=== PATIENT | female | born 1965 | race Caucasian/White ===

== ENCOUNTER 2025-02-27 10:36 | Outpatient (OUT) | payer BC, SELFPAY ==
--- OUTSIDE RECORDS SUMMARY | 2025-02-27 10:47 | XMS_ITS | Encounter Summary ---
Author Organization [facility] Address [address] [facility] [place] [address] Care Team Providers Care Stock Preparation Operator Name Role Phone Cyndie Negro MD Primary Care Provider [phone] Encounter Details Date Type Department Care Team (Late Contact Info) Description 12/26/2024 Abstract [facility] GUZMAN [address] [address] Víctor Lindsey DO [address] [facility] [address] [address] [place] [id number] Social History Tobacco Use Types Packs/Day Years Used Date Smoking Tobacco: Never Smokeless Tobacco: Never Alcohol Use Standard Drinks/Week Comments Yes 0 (1 standard drink = 0.6 oz pur e alcohol) Comments No Sex and Gender Information Value Date Recorded Sex Assigned at Not on file Legal Sex Female 7:34 PM EDT Gender Identity Not on file Sexual Orientation Not on file documented as of this encounter Plan of Treatment Upcoming Encounters Date Type Department Care Team (Late Contact Info) Description 05/24/2025 8:30 AM EST Office Visit [facility] GUZMAN [address] [place] [facility] [address] [address] Giana Muniz DO [address] [address] documented as of this encounter Visit Diagnoses Not on filedocumented in this encounter Care Teams Stock Preparation Operator Relationship Specialty Start Date End Date Cyndie Negro MD PCP - General Family Medicine 08/05/23 documented as of this encounter
--- OUTSIDE RECORDS SUMMARY | 2025-02-27 10:47 | XMS_ITS | Encounter Summary ---
Author Organization [facility] Address [address] [facility] [place] [address] Care Team Providers Care Tin Flopper Name Role Phone Cyndie Negro MD Primary Care Provider [phone] Encounter Details Date Type Department Care Team (Late Contact Info) Description 02/27/2025 Orders Only NOMAdrian KANGLisset [address] [facility] [address] [place] [phone] Víctor Lindsey DO [address] [facility] [address] [place] Com[place], [facility] Localized swelling of left foot Social History Tobacco Use Types Packs/Day Years [...] on file documented as of this encounter Progress Notes * Renuka Ward LPN - 02/27/2025 9:22 AM EDT Swollen left foot. Order needed for x-ray of left foot. documented in this encounter Plan of Treatment Upcoming Encounters Date Type Department Care Team (Late st Contact Info) Description 05/24/2025 8:30 AM EST Office Visit [facility]osi GUZMAN [address] [facility] 2 [place] [phone] Giana Muniz DO [address] [address] Scheduled Orders Name Type Priority Associated Diagnoses Orde r Schedule XR foot 3+ views left Imaging Routine Localized swelling of left foot Expected: 02/27/2025, Expires: 02/27/2026 documented as of this encounter Visit Diagnoses Diagnosis Localized swelling of left foot documented in this encounter Care Teams Tin Flopper Relationship Specialty Start Date End Date Cyndie Negro MD PCP - General Family Medicine 08/05/23 documented as of this encounter
--- OUTSIDE RECORDS SUMMARY | 2025-02-27 10:47 | XMS_ITS | Clinical Summary ---
Author Organization [facility] Address [address] [place] [address] Care Team Providers Care Resident Services Manager Name Role Phone Cyndie Negro MD Primary Care Provider [phone] Allergies Active Allergy Reactions Criticality Noted Date Comments Lisinopril Rash Low 08/05/2023 Penicillins 08/05/2023 Medications metoprolol succinate XL (Toprol-XL) 100 MG 24 hr tablet Take 100 mg by mouth in the morning. 3 Active magnesium 100 MG tablet Take by mouth Active azithromycin (Zithromax Z-Uvaldo) 250 MG tabletIndication s:Sinusitis, unspecified chronicity, unspecified location As directed 6 tablet 4 Active cloNIDine (Catapres) 0.1 MG tablet Take 0.1 mg by mouth in the morning and 0.1 mg before bedtime. Active azithromycin (Zithromax Z-Uvaldo) 250 MG tabletIndication s:Acute sinusitis, recurrence not specified, unspecified location As directed 6 tablet 5 Active azithromycin (Zithromax Z-Uvaldo) 250 MG tabletIndication s:Acute sinusitis, recurrence not specified, unspecified location As directed 6 tablet 5 Active methylPREDNISolo ne (Medrol Dospak) 4 MG tabletsIndicatio ns:Acute sinusitis, recurrence not specified, unspecified location Day 1: 6 tablets Day 2: 5 tablets Day 3: 4 tablets Day 4: 3 tablets Day 5: 2 tablets Day 6: 1 tablet 21 tablet 5 Active azithromycin (Zithromax Z-Uvaldo) 250 MG tabletIndication s:Sinusitis, unspecified chronicity, unspecified location As directed 6 tablet 5 Active fluticasone (Flonase) 50 MCG/ACT nasal sprayIndications :Sinusitis, unspecified chronicity, unspecified location,Acute sinusitis, recurrence not specified, unspecified location Administer 1 spray into each nostril Daily Shake gently. Before first use, prime pump. After use, clean tip and replace cap. 16 g 6 Active albuterol HFA (Ventolin HFA) 90 mcg/act inhalerIndicatio ns:Sinusitis, unspecified chronicity, unspecified location,Acute sinusitis, recurrence not specified, unspecified location Inhale 2 puffs every 4 (four) hours if needed for wheezing 18 g 6 5 Active Encounters Date Type Department Care Team Description 02/27/2025 Orders Only [facility] [address] Víctor Lindsey, Localized swelling of left foot 12/26/2024 [place] [address] Víctor Lindsey DO 12/01/2024 [place] [address] Renuka Ward LPN from Last 3 Months Family History Medical History Relation Name Comments Hypertension Mother Relation Name Status Comments Father Mother Alive Social History Tobacco Use Types Packs/Day Years Used Date Smoking Tobacco: Never Smokeless Tobacco: Never Tobacco Cessation:Counseling Given: Not Answered Alcohol Use Standard Drinks/Week Comments Yes 0 (1 standard drink = 0.6 oz pur e alcohol) Comments No Sex and Gender Information Value Date Recorded Sex Assigned at Not on file Legal Sex Female 7:34 PM EDT Gender Identity Not on file Sexual Orientation Not on file Last Filed Vital Signs Vital Sign Reading Time Taken Comments Blood Pressure 132/80 05/18/2024 9:43 AM EST Pulse - - Temperature - - Respiratory Rate - - Oxygen Saturation - - Inhaled Oxygen Concentration - - Weight 92.5 kg (204 lb) 05/18/2024 9:43 AM EST Height - - Body Mass Index - - Plan of Treatment Upcoming Encounters Date Type Department Care Team (Late st Contact Info) Description 05/24/2025 8:30 AM EST Office Visit [facility] [address] [place] [facility] 2 [place] [address] Giana Muniz DO [address] [phone] Health Maintenance Due Date Last Done Comments CT Colonography 1965 Colonoscopy 1965 Colorectal Cancer Screening 1965 FIT-DNA 1965 FIT 1965 FOBT 1965 Sigmoidoscopy 1965 HPV/Cotest 1995 Mammogram 2005 Influenza Vaccine (#1) 2025 Cervical Cancer Screening 05/18/2027 Pap Smear 05/18/2027 05/18/2024 Procedures Procedure Name Priority Date/Time Associated Diagnosis Comments THINPREP TIS PAP AND HPV MRNA E6/E7 WITH REFLEX TO HPV 16,18/45 Routine 05/18/2024 12:00 AM EST Screening for malignant neoplasm of cervix Encounter for screening for human papillomavirus (HPV) from Last 3 Months or Most Recently Relevant to Health Maintenance Results * THINPREP TIS PAP AND HPV MRNA E6/E7 WITH REFLEX TO HPV 16,18/45 (05/18/2024 12:00 AM EST) CLINICAL INFORMATION [facility] Comment:None given LMP [facility] Comment:None given PREV. PAP [facility] Comment:None given PREV. BX [facility] Comment:None given SOURCE [facility] Comment:None given STATEMENT OF ADEQUACY [facility] Comment: Satisfactory for evaluation. Endocervical/transformation zone component absent. INTERPRETATION/RESU LT [facility] Comment: Cytology Results: Negative for intraepithelial lesion or malignancy. COMMENT [facility] Comment: This Pap test has been evaluated with computer assisted technology. ANALYTICAL DATA SCIENTIST [facility] Comment: PEH, CT(ASCP) CT screening location: [facility] [place], [address] [place] [address], [place] [address]. (ALWAYS MESSAGE) [facility] Comment: EXPLANATORY NOTE: The Pap is a screening test for cervical cancer. It is not a diagnostic test and is subject to false negative and false positive results. It is most reliable when a satisfactory sample, regularly obtained, is submitted with relevant clinical findings and history, and when the Pap result is evaluated along with historic and current clinical information. HPV MRNA E6/E7 Not Detected Not Detected [facility] Comment: Methodology: Slicing Machine Feeder-Mediated Amplification This assay detects E6/E7 viral messenger RNA (mRNA) from 14 high-risk HPV types (16,18,31,33,35,39,45,51,52,56,58,59,66,68). Cervical sources are required for HPV testing. If a vaginal source from a patient who has had a total hysterectomy with removal of cervix was submitted, please contact the testing laboratory for alternative testing options. For additional information, please refer to http://education.Photobucket/faq/MIM442p1 (This link if provided for information/ educational purposes only.) Swab (specimen) 05/18/2024 4 1:46 AM EST Narrative Resulting Agency Comment Performing Organization Information Site ID: [id number] Name: [facility] Address: [address] [place] [phone] Director: Celso Coyne MD Giana Muniz DO LAB CYTOLOGY ORDERABLES Fi nal Result [facility] from Last 3 Months or Most Recently Relevant to Health Maintenance Insurance [employer] Care Teams Resident Services Manager Relationship Specialty Start Date End Date Cyndie Negro MD PCP - General Family Medicine 08/05/23
--- OUTSIDE RECORDS SUMMARY | 2025-02-27 10:47 | XMS_ITS | Encounter Summary ---
Author Organization [facility] Address [address] [place] [address] Care Team Providers Care Stucco Laborer Name Role Phone Cyndie Negro MD Primary Care Provider [phone] Encounter Details Date Type Department Care Team (Late Contact Info) Description 08/13/2023 Abstract [facility]rian Miranda MEGAN [address] [facility] [address] [place] [phone] Giana Muniz DO [address] [address] Social History Tobacco Use Types Packs/Day Years [...] Description 05/24/2025 8:30 AM EST Office Visit CARON GUZMAN [address] [place] [facility] [address] [place] [address] Giana Muniz DO [address] [address] documented as of this encounter Visit Diagnoses Not on filedocumented in this encounter Care Teams Stucco Laborer Relationship Specialty Start Date End Date Cyndie Negro MD PCP - General Family Medicine 08/05/23 documented as of this encounter
--- NOTE | 2025-02-27 10:53 | XR_ITS ---
The [place] [id number] Patient Name: EDILBERTO ANDERSON MRN: [id number] date: 1965 Sex: F Assigned Patient Location: [facility] Current Patient Location: [facility] Accession/Order Number: [id number] Exam Date: 02/27/2025 12:34 Report Date: 02/27/2025 12:36 At the request of: EDMUND REYES DO Procedure: XR foot LT min 3V 3 views left foot plain film COMPARISON:None HISTORY: Left second and third digit pain secondary to injury ACUTE FINDINGS: The dislocation at the second metatarsophalangeal joint. No acute displaced fracture DEGENERATIVE CHANGE: Unremarkable SOFT TISSUE FINDINGS: Benign calcification JOINT EFFUSION: None POSTOP CHANGES: None BONE MINERALIZATION: Adequate XR/XR foot LT min 3V IMPRESSION: Dislocation of the second metatarsal phalangeal joint. No acute displaced fracture Impression dictated by: Spencer Wu M.D. 02/27/2025 12:36 PM Dictation Location: [employer] Electronically authenticated by: [id number] Y Date: 02/27/2025 12:36
== END 2025-02-27 10:37 | disposition home or self-care (01) ==
LOC: RAD 10:46
PROVIDERS: PCP Family Medicine; Visit Provider Obstetrics & Gynecology
DX: R22.42 Localized swelling, mass and lump, left lower limb (principal); S93.125A Dislocation of metatarsophalangeal joint of left lesser toe(s), initial encounter
CPT/HCPCS: 73630

== ENCOUNTER 2025-02-27 14:49 | Outpatient (OUT) | payer BC, SELFPAY ==
--- NOTE | 2025-02-27 14:58 | XR_ITS ---
The [address] [address] Patient Name: EDILBERTO ANDERSON MRN: [id number] date: 1965 Sex: F Assigned Patient Location: [facility] Current Patient Location: [facility] Accession/Order Number: [id number] Exam Date: 02/27/2025 15:39 Report Date: 02/27/2025 15:45 At the request of: CACHORRO LANGFORD Procedure: XR toe LT min 2V 3 views left second toe COMPARISON: 02/27/2025 at 1044 hours Adequate alignment. No acute displaced fracture. XR/XR toe LT min 2V IMPRESSION: Adequate reduction Impression dictated by: Spencer Wu M.D. 02/27/2025 3:45 PM Dictation Location: [place] [address] Electronically authenticated by: [id number] Y Date: 02/27/2025 15:45
== END 2025-02-27 14:50 | disposition home or self-care (01) ==
PROVIDERS: PCP Family Medicine; Visit Provider Physician Assistant
DX: S93.125A Dislocation of metatarsophalangeal joint of left lesser toe(s), initial encounter (principal); R22.42 Localized swelling, mass and lump, left lower limb; S93.10 Unspecified subluxation and dislocation of toe
CPT/HCPCS: 73630; 73660